=== PATIENT | male | born 1985 | race African-American/Black ===

== ENCOUNTER 2018-03-08 13:51 | Emergency (ER) | payer OTHER ==
[2018-03-08 14:00] VITALS: BP 119/73; PULSE 54; RESP 18; TEMP 98.1
[2018-03-08] MEDS ORDERED: BACITRACIN OINT 1 EACH PACKET TOPICAL ONE (14:09)
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
== END 2018-03-08 14:29 | disposition home or self-care (01) ==
LOC: EC 13:51
DX: T24.231A Burn of second degree of right lower leg, initial encounter (principal); T31.0 Burns involving less than 10% of body surface; F17.200 Nicotine dependence, unspecified, uncomplicated; V28.0XXA Motorcycle driver injured in noncollision transport accident in nontraffic accident, initial encounter; Y92.410 Unspecified street and highway as the place of occurrence of the external cause
CPT/HCPCS: 99283

== ENCOUNTER 2020-11-11 20:06 | Emergency (ER) | payer OTHER ==
[2020-11-11 20:16] VITALS: BP 129/90; PULSE 82; RESP 20; TEMP 98
[2020-11-11] MEDS ORDERED: TOPICAL SKIN ADHESIVE 1 EACH AMP TOPICAL ONE (20:24)
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
== END 2020-11-11 20:45 | disposition home or self-care (01) ==
LOC: EC 20:06
DX: S61.011A Laceration without foreign body of right thumb without damage to nail, initial encounter (principal); F17.290 Nicotine dependence, other tobacco product, uncomplicated; F12.90 Cannabis use, unspecified, uncomplicated; W22.8XXA Striking against or struck by other objects, initial encounter
CPT/HCPCS: 99283

== ENCOUNTER 2020-11-17 05:18 | Emergency (ER) | payer OTHER ==
[2020-11-17 05:24] VITALS: BP 148/79; PULSE 63; RESP 18; TEMP 97.8
[2020-11-17] MEDS ORDERED: BACITRACIN OINT 1 EACH PACKET TOPICAL ONE (06:17)
--- NOTE | 2020-11-17 06:17 | ED ---
General Adult HPI - General Chief complaint: Skin/Abscess/Foreign Body Stated complaint: RT hand injury recheck Time Seen by Provider: 11/17/20 06:09 Source: patient, RN notes reviewed, old records reviewed Mode of arrival: ambulatory Limitations: no limitations - History of Present Illness Initial comments: This Patient is a 35-year-old male who presents to emergency department today for evaluation of right thumb wound recheck. Patient reports that he was seen 1 week ago and had Dermabond placed over the laceration. Patient was determined fell off. He states today complaining of soreness slightly opened and swollen. Patient reports small amount of pus possibly glue from the site. Patient denies any pain with range of motion of the thumb and is able to flex and extend the thumb without any limitation. Patient denies any other complaints. Patient denies any recent fever, chills, shortness of breath, chest pain, back pain, abdominal pain, nausea vomiting, numbness or tingling, dysuria or hematuria, constipation or diarrhea, headaches or visual changes, or any other current symptoms - Related Data Previous Rx's Medication Instructions Recorded Ibuprofen [Motrin] 600 mg PO Q6HR PRN #40 day 03/08/18 Bacitracin Zinc Oint 1 applic TOPICAL TID #60 gm 11/17/20 Allergies Allergy/AdvReac Type Severity Reaction Status Date / Time No Known Allergies Allergy Verified 11/17/20 05:24 Review of Systems ROS Statement: Those systems with pertinent positive or pertinent negative responses have been documented in the HPI. ROS Other: All systems not noted in ROS Statement are negative. Past Medical History Past Medical History: No Reported History History of Any Multi-Drug Resistant Organisms: None Reported Past Surgical History: No Surgical Hx Reported Past Psychological History: No Psychological Hx Reported Smoking Status: Vaper Past Alcohol Use History: None Reported Past Drug Use History: Marijuana General Exam - General Exam Comments Initial Comments: Pleasant 35-year-old male. No acute distress. Limitations: no limitations General appearance: alert, in no apparent distress Head exam: Present: atraumatic, normocephalic, normal inspection Eye exam: Present: normal appearance, PERRL, EOMI. Absent: scleral icterus, conjunctival injection, periorbital swelling ENT exam: Present: normal exam, mucous membranes moist Neck exam: Present: normal inspection. Absent: tenderness, meningismus, lymphadenopathy Respiratory exam: Present: normal lung sounds bilaterally. Absent: respiratory distress, wheezes, rales, rhonchi, stridor Cardiovascular Exam: Present: regular rate, normal rhythm, normal heart sounds. Absent: systolic murmur, diastolic murmur, rubs, gallop, clicks GI/Abdominal exam: Present: soft, normal bowel sounds. Absent: distended, tenderness, guarding, rebound, rigid Extremities exam: Present: normal inspection, full ROM, normal capillary refill, other ( is a 2 cm laceration over the right thumb that is well-healed. There is slight less than 2-3 mm dehiscence in the center of the wound glue has been removed. No surrounding erythema drainage or pus. Patient has full range of motion with flexion and extension of the thumb. Negative Canva sig). Absent: tenderness, pedal edema, joint swelling, calf tenderness Back exam: Present: normal inspection Neurological exam: Present: alert, oriented X3, CN II-XII intact Course Vital Signs 11/17/20 05:20 Temperature 97.8 F Pulse Rate 63 Respiratory 18 Rate Blood Pressure 148/79 O2 Sat by Pulse 100 Oximetry Medical Decision Making - Medical Decision Making 35-year-old male presents today for concern for wound infection on the right thumb. Patient's wound was cleaned and closed with Dermabond approximately one week ago. Dermatitis of the lumbar slight dehiscence. Reports he thought there is some pus. On my examination there is no erythema or pus. The wound is still slightly dehisced 2-3 mm now will heal from secondary intention. Patient has no limitations in range of motion. Patient denies any other complaints. We will follow-up return if there is any worsening signs or symptoms. Advised topical antibiotic and proper wound care. Disposition Clinical Impression: Encounter for re-check of laceration wound Disposition: HOME SELF-CARE Condition: Good Instructions (If sedation given, give patient instructions): Acute Wound Care (ED) Additional Instructions: Clean the area with soap and water. Apply antibiotic ointment and keep the area covered. Monitor the hand, if there is increased swelling extending into the hand and wrist please return to the ER or follow up with PCP. Prescriptions: Bacitracin Zinc Oint 1 applic TOPICAL TID #60 gm Is patient prescribed a controlled substance at d/c from ED?: No Referrals: None,Stated [Primary Care Provider] - 1-2 days Time of Disposition: 06:16
== END 2020-11-17 06:23 | disposition home or self-care (01) ==
LOC: EC 05:18
DX: Z48.00 Encounter for change or removal of nonsurgical wound dressing (principal)
CPT/HCPCS: 99281